=== PATIENT | female | born 1995 | race Caucasian/White ===

== ENCOUNTER 2016-09-09 08:08 | Emergency (ER) | payer BC, OTHER ==
[~2016-09-09] VITALS: Ht 157.5 cm; Wt 64.4 kg
[~2016-09-09 08:08] MED LIST: DEP150I
[2016-09-09 08:22] VITALS: BP 134/73
--- NOTE | 2016-09-09 08:22 | NUR ---
PATIENT AMBULATED TO BED 5 AT THIS TIME.
[2016-09-09] MEDS ORDERED: SYN.05 PO (08:28)
--- NOTE | 2016-09-09 08:30 | NUR ---
PT SEEN PMD X2 WKS. AGO WITH LARYNGITIS WITH Z-PACK.DENIES PAIN. HX: HYPOTHYROIDISM; DENIES N/V/D; SKIN IS PINK/WARM/DRY; AAOX4 WITH EVEN AND STEADY GAIT; LUNGS CLEAR BL; HR EVEN AND REGULAR; PT DENIES ANY FEVER, CP, SOB, OR COUGH AT THIS TIME; PATIENT STATES PAIN OF 0/10 AT THIS TIME; VSS; PATIENT POSITIONED FOR COMFORT; HOB ELEVATED; BEDRAILS UP X2; BED DOWN. ER MD MADE AWARE OF PT STATUS.
[2016-09-09 08:53] VITALS: BP 122/76
== END 2016-09-09 08:53 | disposition home or self-care (01) ==
LOC: MED 08:08
DX: R22.1 Localized swelling, mass and lump, neck (principal); R07.0 Pain in throat
CPT/HCPCS: 99283

== ENCOUNTER 2016-12-20 19:14 | Emergency (ER) | payer BC ==
[~2016-12-20] VITALS: Ht 157.5 cm; Wt 63.5 kg
[~2016-12-20 19:14] MED LIST changes: +SYN.05 PO
[2016-12-20 19:30] VITALS: BP 132/76
--- NOTE | 2016-12-20 21:07 | NUR ---
TO ER OF3
--- NOTE | 2016-12-20 22:02 | NUR ---
Patient being evaluated by physician at bedside.
[2016-12-20] MEDS ORDERED: PROCHLORPERAZINE 10 MG/2 ML VIAL IM ONE (22:05)
[2016-12-20] MEDS ORDERED: diphenhydrAMINE 50 MG/ML VIAL IM ONE (22:05)
--- NOTE | 2016-12-20 22:08 | NUR ---
MOVED TO ER BED 8
--- NOTE | 2016-12-20 22:22 | NUR ---
COMPAZINE 10 MG IM GIVEN. BENADRYL NOT AVAILABLE [facility]IA [employer], ORDERED FROM SEARCH DIRECTOR.
--- NOTE | 2016-12-20 22:28 | NUR ---
BENADRYL 50 MG IM GIVEN ORDERED.
[2016-12-20] MEDS ORDERED: diphenhydrAMINE 50 MG/ML VIAL ONE (22:30)
--- NOTE | 2016-12-20 22:45 | NUR ---
DISCHARGED STABLE AND IMPROVED. PRESCRIPTION,VERBAL AND WRITTEN AFTERCARE INSTRUCTIONS GIVEN. VERBALIZED UNDERSTANDING.
[2016-12-20 23:00] VITALS: BP 127/81
== END 2016-12-20 22:45 | disposition home or self-care (01) ==
LOC: MED 19:14
DX: G43.909 Migraine, unspecified, not intractable, without status migrainosus (principal); R03.0 Elevated blood-pressure reading, without diagnosis of hypertension; Z79.899 Other long term (current) drug therapy
CPT/HCPCS: 81025; 96372; 99284; J0780; J1200